=== PATIENT | male | born 1995 ===

== ENCOUNTER 2019-12-22 12:29 | Emergency (ER) | payer MEDICAID, SELFPAY ==
--- NOTE | 2019-12-22 12:42 | ED.GENADULT ---
HPI - General Adult General Chief complaint: Extremity Problem,Nontraumatic Stated complaint: left big toe infected Time Seen by Provider: 12/22/19 12:43 Source: patient and RN notes reviewed Mode of arrival: ambulatory Limitations: no limitations History of Present Illness HPI narrative: This is a 24 years old male presented office for evaluation of possible toe infection. He first noticed it about 1week after he cut his toenails. States, he has been cleaning with Peroxide with no improvement. Denies history of MRSA.Td is up-to-date. Denies foot injury or trauma. Related Data Allergies Allergy/AdvReac Type Severity Reaction Status Date / Time No Known Allergies Allergy Verified 12/22/19 12:43 Review of Systems Review of Systems: Narrative: CONSTITUTIONAL: Denies fever or feeling ill ENT: Denies congestion CARDIOVASCULAR: Denies chest pain RESPIRATORY: Denies dyspnea GASTROINTESTINAL: Denies abdominal pain, nausea, vomiting, diarrhea. SKIN: reports left great toe with redness, swelling, foul odor MUSCULOSKELETAL: Denies foot trauma/injury; admits to sweating feet. NEUROLOGIC: Denies lightheaded PMFSH Past Medical History Medical History Benign essential hypertension Generalized anxiety disorder with panic attacks Family History Family History Other Hypertension Social History Social History Smoking status: Never smoker Alcohol intake: current Gender identity (if verbalized by the patient): Male Comments At time of signature, I agree with nursing past medical, surgical, social and family history. There is no relevant family history pertinent to the presenting complaint. Exam Narrative: Exam Narrative: GENERAL: This is a well-nourished, well-developed patient, in no apparent distress. CARDIOVASCULAR: Regular rate and rhythm without murmurs, gallops, or rubs. RESPIRATORY: Clear to auscultation. Breath sounds equal bilaterally. No wheezes, rales, or rhonchi. SKIN: warm, intact with no suspicious lesions or rash, good texture and turgor. NEURO: awake, alert, and oriented to person, place and time. There were no obvious focal neurologic abnormalities. Steady gait EXTREMITIES: left great toe noted Paronychia on posterior and fibula aspect of nailfold, with erythema and drainage, and tenderness to palpation. No foot swelling. Pedal pulse intact. Cap refills brisk. [place] Coma Scale Eye Opening: Spontaneous 4 [place] Coma Scale Motor: Obeys Commands 6 Elaine Coma Scale Verbal: Oriented 5 Medical Decision Making MDM Narrative Medical decision making narrative: Discharge instructions reviewed with patient, as well as provided in writing per nursing staff. The instructions also include specific and strict return/GO TO THE ER as well as f/u information. All questions have been answered, and the patient deny any further questions with discharge and discharge plan. Differential Diagnosis Differential Diagnosis: Cellulitis, paronychia, abscess,Insect bite Critical Care Time Critical Care Time Critical Care Time: No Discharge Plan Discharge Clinical Impression: Paronychia of great toe, left, Elevated blood pressure reading in office with diagnosis of hypertension Patient Disposition: Home, Self-Care Condition: Stable Instructions: Antibiotic Form, Paronychia (ED) Additional Instructions: Take antibiotic until it is gone Soak your toe in warm water over the absence of about 2-3 times a day for about 20min to promote faster healing Avoid cleaning with alcohol or peroxide for cleaning It is better not to cover it up with Band-Aid however if you decide to do dressing to prevent leaking/drainage, make sure to change it frequently, like every 3-4 hours You can take NSAID for pain as it may help reduce with swelling and redness as wel
[2019-12-22 12:44] VITALS: BP 171/94; PULSE 101; RESP 18; TEMP 36.9; O2SAT 100
== END 2019-12-22 12:58 | disposition home or self-care (01) ==
PROVIDERS: Emergency Provider Nurse Practitioner; PCP Family Medicine
DX: L03.032 Cellulitis of left toe (principal); I10 Essential (primary) hypertension
CPT/HCPCS: 99213; G0463